=== PATIENT | male | born 1940 | race Caucasian/White ===

== ENCOUNTER 2022-04-22 07:15 | Inpatient (IN) | payer OTHER, MEDICARE, MEDICAID ==
[2022-04-23] MEDS ORDERED: Albuterol/Ipratropium 3.0-0.5 MG/3 ML Neb Soln NEB PRN (10:42)
[2022-04-23] MEDS ORDERED: Bisacodyl 5 MG Tab PO PRN (10:42)
[2022-04-23] MEDS ORDERED: oxyCODONE 5 MG Tab PO PRN (10:42)
[2022-04-23] MEDS ORDERED: guaiFENesin 100 MG/5 ML Soln 5 ML UD Cup PO PRN (10:42)
[2022-04-23] MEDS ORDERED: Magnesium Hydroxide 400 MG/5 ML Susp 30 ML Cup PO PRN (10:42)
[2022-04-23] MEDS ORDERED: Polyethylene Glycol 3350 Powder 17 GM Packet PO PRN (10:42)
[2022-04-23] MEDS ORDERED: Sodium Chloride 0.9% 10 ML Syringe FLUSH PRN (10:42)
[2022-04-23] MEDS ORDERED: Morphine 2 MG/ML SYRINGE IVPUSH PRN (10:42)
[2022-04-23] MEDS: Ondansetron 4 MG/2 ML SDV IVPUSH PRN (16:04)
[2022-04-23] MEDS: Acetaminophen 325 MG Tab PO PRN (16:04)
[2022-04-23] MEDS: Mirtazapine 15 MG Tab PO SCH (21:12)
[2022-04-23] MEDS: Famotidine 20 MG Tab PO SCH (21:12)
[2022-04-23] MEDS: Sodium Chloride 0.9% 10 ML Syringe FLUSH SCH (21:13)
[2022-04-24] MEDS: Ondansetron 4 MG/2 ML SDV IVPUSH PRN (01:59)
[2022-04-24 07:44] LABS: ANION GAP 4.8 mEq/L (7-13)
[2022-04-24] MEDS ORDERED: Furosemide 40 MG/4 ML VIAL IVPUSH ONE (09:07)
[2022-04-24] MEDS: Sodium Chloride 0.9% 10 ML Syringe FLUSH SCH ×2 (09:10→21:47)
[2022-04-24] MEDS: Enoxaparin 40 MG/0.4 ML Syringe SUBCUT SCH (09:10)
[2022-04-24] MEDS: Famotidine 20 MG Tab PO SCH ×2 (09:10→21:47)
[2022-04-24] MEDS: Multivitamin Tab PO SCH (09:10)
[2022-04-24] MEDS ORDERED: cefTRIAXone 1 GM Vial IVPUSH SCH (10:00)
[2022-04-24] MEDS: Mirtazapine 15 MG Tab PO SCH (21:47)
[2022-04-25] MEDS: Furosemide 40 MG Tab PO SCH (09:34)
[2022-04-25] MEDS: Multivitamin Tab PO SCH (09:34)
[2022-04-25] MEDS: Famotidine 20 MG Tab PO SCH (09:34)
[2022-04-25] MEDS: Enoxaparin 40 MG/0.4 ML Syringe SUBCUT SCH (09:35)
[2022-04-25] MEDS: Sodium Chloride 0.9% 10 ML Syringe FLUSH SCH ×2 (09:35→20:21)
[2022-04-25] MEDS ORDERED: cefTRIAXone 1 GM, Lidocaine 1% 2.1 ML IM ONE ×2 (09:36)
[2022-04-25] MEDS: Mirtazapine 15 MG Tab PO SCH (20:21)
[2022-04-26] MEDS: Multivitamin Tab PO SCH (09:33)
[2022-04-26] MEDS: Furosemide 40 MG Tab PO SCH (09:33)
[2022-04-26] MEDS: Enoxaparin 40 MG/0.4 ML Syringe SUBCUT SCH (09:34)
[2022-04-27] MEDS: Mirtazapine 15 MG Tab PO SCH ×2 (00:53→21:36)
[2022-04-27] MEDS: Multivitamin Tab PO SCH (08:40)
[2022-04-27] MEDS: Enoxaparin 40 MG/0.4 ML Syringe SUBCUT SCH (08:40)
[2022-04-27] MEDS: Furosemide 40 MG Tab PO SCH (08:40)
[2022-04-28] MEDS: Furosemide 40 MG Tab PO SCH (08:23)
[2022-04-28] MEDS: Enoxaparin 40 MG/0.4 ML Syringe SUBCUT SCH (08:23)
[2022-04-28] MEDS: Multivitamin Tab PO SCH (08:23)
[2022-04-28] MEDS: Mirtazapine 15 MG Tab PO SCH (20:37)
[2022-04-29] MEDS: Acetaminophen 325 MG Tab PO PRN ×2 (08:24→20:34)
[2022-04-29] MEDS: Enoxaparin 40 MG/0.4 ML Syringe SUBCUT SCH (08:24)
[2022-04-29] MEDS: Furosemide 40 MG Tab PO SCH (08:24)
[2022-04-29] MEDS: Multivitamin Tab PO SCH (08:24)
[2022-04-29] MEDS: Mirtazapine 15 MG Tab PO SCH (20:34)
[2022-04-30] MEDS: Acetaminophen 325 MG Tab PO PRN ×2 (02:54→21:22)
[2022-04-30] MEDS: Furosemide 40 MG Tab PO SCH (08:11)
[2022-04-30] MEDS: Enoxaparin 40 MG/0.4 ML Syringe SUBCUT SCH (08:12)
[2022-04-30] MEDS: Multivitamin Tab PO SCH (08:12)
[2022-04-30] MEDS: Mirtazapine 15 MG Tab PO SCH (21:21)
[2022-05-01] MEDS: Enoxaparin 40 MG/0.4 ML Syringe SUBCUT SCH (07:59)
[2022-05-01] MEDS: Furosemide 40 MG Tab PO SCH (07:59)
[2022-05-01] MEDS: Multivitamin Tab PO SCH (08:00)
[2022-05-01] MEDS: Mirtazapine 15 MG Tab PO SCH (21:01)
[2022-05-02] MEDS: Multivitamin Tab PO SCH (08:20)
[2022-05-02] MEDS: Furosemide 40 MG Tab PO SCH (08:20)
[2022-05-02] MEDS: Enoxaparin 40 MG/0.4 ML Syringe SUBCUT SCH (08:20)
== END 2022-05-02 15:15 | disposition home health service (06) | DRG 947 ==
LOC: DL.MS 04-23 13:30 → UNDOADMIN 04-23 13:30 → DL.MS 04-29 15:13
PROVIDERS: ADMIT Internal Medicine; ATTEND Internal Medicine
DX: R53.1 Weakness (principal); E43 Unspecified severe protein-calorie malnutrition; E87.6 Hypokalemia; H54.7 Unspecified visual loss; I48.91 Unspecified atrial fibrillation; R60.0 Localized edema; R32 Unspecified urinary incontinence; W19.XXXA Unspecified fall, initial encounter; Z86.16 Personal history of COVID-19; Z79.899 Other long term (current) drug therapy; Z79.82 Long term (current) use of aspirin; Z68.25 Body mass index [BMI] 25.0-25.9, adult
CPT/HCPCS: 36415; 80048; 83735; 97110-GP; 97116-GP; 97161-GP; 97165-GO; 97530-GO; 97535-GO; 99306; 99310; 99315; A9270-GY; J0696; J1650; J1940; J2405; J3490

== ENCOUNTER 2024-01-23 14:53 | Emergency (ER) | payer MEDICARE, MEDICAID, OTHER ==
[2024-01-23] MEDS: Sodium Chloride 0.9% 1,000 ML IV ONE ×2 (15:17→16:37)
[2024-01-23 15:30] LABS: BASOPHILS PERCENT AUTO 0.1 % (0.0-1.0); HEMATOCRIT 36.7 % (40.0-54.0); HEMOGLOBIN 11.8 g/dL (14.0-18.0); LYMPHOCYTES PERCENT AUTO 4.1 % (20.5-50.1); MEAN CORPUSCULAR HEMOGLOBIN 32.5 pg (27.0-34.0); MEAN CORPUSCULAR HGB CONC 32.2 g/dL (33.0-35.0); MEAN CORPUSCULAR VOLUME 101.1 fL (80-100); MONOCYTES PERCENT AUTO 4.7 % (2-8); NEUTROPHILS PERCENT AUTO 91.1 % (42.2-75.2); PLATELET COUNT,PLT 214 10^3/uL (150-450); RED BLOOD CELL COUNT 3.63 10^6/uL (4.6-6.2); WHITE BLOOD CELL COUNT,WBC 18.4 10^3/uL (5.0-10.0)
[2024-01-23 15:51] LABS: ALANINE AMINOTRANSFERASE,ALT 198 U/L (16-63); ALKALINE PHOSPHATASE 704 U/L (46-116); ANION GAP 34.3 mEq/L (7-13); ASPARTATE AMNIOTRANSFERASE,AST 257 U/L (15-37); BILIRUBIN TOTAL 13.2 mg/dL (0.2-1.0); BLOOD UREA NITROGEN,BUN 67 mg/dL (7-18); BUN/CREATININE RATIO 33.5 (No establ ref range); C-REACTIVE PROTEIN 11.76 ng/dL (<=0.50); CALCIUM 11.1 mg/dL (8.5-10.1); CARBON DIOXIDE,CO2 15 mmol/L (21-32); CHLORIDE,CL 102 mmol/L (98-107); GLUCOSE RANDOM 83 mg/dL (70-99); MAGNESIUM 2.6 mg/dL (1.8-2.4); POTASSIUM,K 4.3 mmol/L (3.5-5.1); PROTEIN TOTAL,TP 7.1 g/dL (6.4-8.2); SODIUM,NA 147 mmol/L (136-145)
[2024-01-23 15:53] LABS: A/G RATIO 0.73; ESTIMATED GFR 32 mL/min (>=60)
[2024-01-23 15:57] LABS: LACTIC ACID 2.3 mmol/L (0.4-2.0)
[2024-01-23 16:28] LABS: APPEARANCE,URINE CLEAR (CLEAR); BILIRUBIN,URINE LARGE (NEGATIVE); COLOR,URINE DARK YELLOW (YELLOW); GLUCOSE,URINE NEGATIVE (NEGATIVE); KETONES,URINE 80 (NEGATIVE); LEUKOCYTE ESTERASE,URINE NEGATIVE (NEGATIVE); NITRITE,URINE NEGATIVE (NEGATIVE); OCCULT BLOOD,URINE SMALL (NEGATIVE); PH,URINE 5.5 (5.0-9.0); PROTEIN,URINE 100 (NEGATIVE)
[2024-01-23] MEDS: Piperacillin/Tazobactam 4.5 GM in Sodium Chloride 0.9% 100 ML IV ONE (16:35)
[2024-01-23] MEDS: Sodium Chloride 0.9% 10 ML Syringe FLUSH PRN (16:37)
[2024-01-23 16:46] LABS: INR 1.2 (0.9-1.2)
[2024-01-23 16:50] LABS: B-TYPE NATRIURETIC PEPTIDE,BNP 145 pg/ml (0-100)
[2024-01-23 16:51] LABS: WBC,URINE 0-5 /HPF (0-5/HPF)
[2024-01-23] MEDS: Vancomycin 1.5 GM in Sodium Chloride 0.9% 500 ML IV ONE (16:53)
[2024-01-23 16:55] LABS: AMORPHOUS SEDIMENT,URINE FEW /HPF (NOT SEEN); BACTERIA,URINE FEW /HPF (0-FEW/HPF); EPITHELIAL CELLS,URINE NOT SEEN /HPF (NOT SEEN); HYALINE CASTS,URINE FEW; MUCUS,URINE FEW /LPF (NOT SEEN)
[2024-01-23 16:56] LABS: O2 DELIVERY DEVICE ROOM AIR; PH,VENOUS 7.26 (7.31-7.41)
[2024-01-23 16:57] LABS: BASE EXCESS VENOUS -11.8 mmol/l ((-2)-(+3)); BICARBONATE,VENOUS 14 mmol/l (19-25); O2 SATURATION VENOUS 66.3 % (60-80); PCO2 VENOUS 32 mmHg (41-51); PO2 VENOUS 43 mmHg (35-42)
== END 2024-01-23 19:09 ==
LOC: DL.ED 14:53
DX: A41.9 Sepsis, unspecified organism (principal); Z86.16 Personal history of COVID-19; Z79.82 Long term (current) use of aspirin; Z79.899 Other long term (current) drug therapy
CPT/HCPCS: 36415; 51702; 70450; 71045; 76705; 80053; 80143; 81001; 82140; 82803; 82947; 83605; 83735; 83880; 85025; 85610; 86140; 87040; 87804; 93005; 93010; 96361; 96365; 96366; 96367; 99285; 99285-25; J2543; J3370; J3490; J7030; J7040; U0002